=== PATIENT | female | born 1990 | race Caucasian/White ===

== ENCOUNTER 2017-02-22 18:36 | Inpatient (IN) | payer BC ==
[2017-02-22] VITALS (12 sets, daily range): BP systolic 53–119; BP diastolic 27–76
[~2017-02-22] VITALS: Ht 160 cm; Wt 68.0 kg
[~2017-02-22 18:36] MED LIST: Motrin PO; Percocet 5/325,Endoc PO
[2017-02-22] MEDS ORDERED: PRENATAL TABLE1 EAC3 PO (19:07)
[2017-02-22 19:42] LABS: EOSINOPHIL (%) 0.3 % (0-5); HEMATOCRIT 37.3 % (36.0-46.0); IMMATURE GRANULOCYTE (%) 0.4 % (0.0-0.7); INSTRUMENT ABS NEUTROPHIL CT 8.5 K/uL; LYMPHOCYTE COUNT 2.2 K/uL (1.0-2.8); MCH 31.1 PG (29.0-34.0); MCHC 34.3 G/DL (30.0-36.0); MCV 90.8 FL (83-99); MEAN PLAT.VOLUME 10.6 uM^3 (9.5-12.4); MONOCYTE (%) 4.8 % (3-12); MONOCYTE COUNT 0.5 K/uL (0-0.8); NEUTROPHIL COUNT 8.5 K/uL (1.8-6.4); PLATELET COUNT 209 K/uL (156-360); RBC DIS.WIDTH-CV 12.2 % (11.8-14.6); RBC DIS.WIDTH-SD 40.3 % (39-53); RED BLOOD COUNT 4.11 M/uL (3.80-5.20); WHITE BLOOD COUNT 11.3 K/uL (4.1-10.2)
[2017-02-23] VITALS (9 sets, daily range): BP systolic 114–132; BP diastolic 66–86
[2017-02-23] MEDS ORDERED: MOTRIN800 MG PO (01:55)
[2017-02-24 07:09] VITALS: BP 105/76
== END 2017-02-24 12:50 | disposition home or self-care (01) | DRG 775 ==
LOC: LDRP-OP 18:36 → 2WEST 18:38 → LDRP-OP 04-01 11:55
PROVIDERS: Midwife
PROC: 10E0XZZ Delivery of Products of Conception, External Approach (ICD-10-PCS; principal; 2017-02-22)
DX: O99.824 Streptococcus B carrier state complicating childbirth (principal); Z3A.39 39 weeks gestation of pregnancy; Z37.0 Single live birth
CPT/HCPCS: 85025; C1755; G0378; J2540; J7120